=== PATIENT | male | born 1995 | race Caucasian/White ===

== ENCOUNTER 2023-06-27 08:00 | Outpatient (CLI) | payer OTHER | END 2023-06-27 23:59 | disposition home or self-care (01) | LOC: LAB.S 08:00 | PROVIDERS: ATTEND Emergency Medicine | DX: J02.8 Acute pharyngitis due to other specified organisms (principal) | CPT/HCPCS: 87070 ==

== ENCOUNTER 2023-06-27 19:57 | Emergency (ER) | payer OTHER ==
--- NOTE | 2023-06-27 21:03 | ED Physician Documentation ---
PD HPI OPHTHO - Stated complaint Stated Complaint: EYE PX/SORE THROAT - Chief complaint Chief Complaint: Heent - History obtained from History obtained from: Patient - Additional information Additional information: 27-year-old gentleman who is otherwise healthy and does not wear contacts has had a sore throat for a few days and today this evening developed right greater than left grittiness of the eyes with purulent drainage from the right eye. No vision deficit. PD PAST MEDICAL HISTORY - Present Medications Home Medications: Ambulatory Orders Medication Instructions Recorded Confirmed Erythromycin Base [Erythromycin 1 appful OP 5XD 7 Days #1 gm 06/27/23 Ophthalmic Ointment] - Allergies Allergies/Adverse Reactions: Allergies Allergy/AdvReac Type Severity Reaction Status Date / Time No Known Drug Allergies Allergy Verified 06/27/23 20:52 PD ED PE NORMAL - Vitals Vital signs reviewed: Yes - General General: Alert and oriented X 3, No acute distress - HEENT HEENT: PERRL, EOMI, Other (Bilateral conjunctivitis, right worse than left with a little bit of purulent drainage from the right but not hyper purulent.) - Neuro Neuro: Alert and oriented X 3 Results - Vitals Vitals: Vital Signs - 24 hr 06/27/23 20:43 Temperature 36.2 C L Heart Rate 97 Respiratory 16 Rate Blood Pressure 131/79 H O2 Saturation 100 Oxygen O2 Source Room air Departure - Departure Disposition: 01 Home, Self Care Clinical Impression: Conjunctivitis Condition: Stable Record reviewed to determine appropriate education?: Yes Instructions: ED Conjunctivitis Nonspecific Follow-Up: Hema Reed MD [Provider Admit Priv/Credential] - Prescriptions: Erythromycin Base [Erythromycin Ophthalmic Ointment] 1 appful OP 5XD 7 Days #1 gm Comments: If not better by the end of the weekend you should follow-up with the mortgage professional, the numbers on this form. Return for new or worsening symptoms.
[2023-06-27] MEDS: ERYTHROMYCIN OPHTH OINT 1 GM TUBE EACHEYE STA (21:08)
[2023-06-27 21:09] VITALS: BP 131/79; O2SAT 100
== END 2023-06-27 21:16 | disposition home or self-care (01) ==
LOC: ED 19:57
DX: H10.9 Unspecified conjunctivitis (principal); J02.8 Acute pharyngitis due to other specified organisms
CPT/HCPCS: 87070; 99282; 99283; J3490